=== PATIENT | female | born 1990 | race Caucasian/White ===

== ENCOUNTER 2018-03-23 23:58 | Emergency (ER) | payer BC, SELFPAY ==
[2018-03-24] MEDS ORDERED: Clindamycin 150 MG CAP ONE (00:42)
[2018-03-24] MEDS ORDERED: Dexamethasone 10 MG/ML VIAL ONE (00:42)
== END 2018-03-24 00:52 | disposition home or self-care (01) ==
LOC: ERS 23:58
DX: J02.9 Acute pharyngitis, unspecified (principal)
CPT/HCPCS: 99283; J1100

== ENCOUNTER 2018-04-05 18:08 | Inpatient (IN) | payer SELFPAY ==
[~2018-04-05 18:08] MED LIST: ISOVUE-370 76%-LOCM 1 ML ONE
[2018-04-05 18:45] LABS: #Basophils 0.1 thou/uL (0.0-0.2); #Eosinphils 0.5 thou/uL (0.0-0.7); #Lymphocytes 3.5 thou/uL (1.20-3.40); #Monocytes 0.8 thou/uL (0.11-0.59); #Neutrophils 13.2 thou/uL (1.40-6.50); %Basophils 0.6 % (0.0-1.0); %Eosinophils 2.8 % (0.0-10.0); %Lymphocytes 19.1 % (21.0-51.0); %Monocytes 4.2 % (0.0-10.0); %Neutrophils 73.2 % (42.0-75.0); Hemoglobin 14.4 g/dL (12.0-16.0); Mean Corpuscular Hemoglobin 29.4 pg (27.0-31.0); Mean Corpuscular Volume 88.9 fL (78.0-98.0); Mean Platelet Volume 8.4 fL (7.4-10.4); Platelet Count 263 thou/uL (130-400); RBC Distribution Width 11.6 % (11.5-14.5); Red Blood Cell (RBC) Count 4.89 mill/uL (4.20-5.40)
[2018-04-05] MEDS ORDERED: Ondansetron PF 4 MG/2 ML Vial ONE (18:50)
[2018-04-05] MEDS ORDERED: Morphine 4 MG/ML VIAL ONE ×3 (18:50→20:56)
[2018-04-05 18:53] LABS: BHCG - Serum Negative (NEGATIVE); Pregs Control Background? CLEAR/WHITE (CLR/WHITE); Pregs Control Bar Appear? YES (CONTROL BAR)
[2018-04-05 18:56] LABS: ALT (SGPT) 27 U/L (8-55); AST (SGOT) 19 U/L (5-34); Albumin 4.3 g/dL (3.5-5.0); Alkaline Phosphatase 103 U/L (40-150); Anion Gap 14 mmol/L (10-20); BUN (Urea Nitrogen) 9 mg/dL (7.0-18.7); Bilirubin, Total 0.7 mg/dL (0.2-1.2); Calc. Creatinine Clearance 0 mL/min (70-130); Calcium 9.9 mg/dL (7.8-10.44); Carbon Dioxide 26 mmol/L (22-29); Chloride 103 mmol/L (98-107); Estimated GFR-MDRD 82; Glucose 146 mg/dL (70-105); Potassium 4.1 mmol/L (3.5-5.1); Protein, Total 7.3 g/dL (6.0-8.3); Sodium 139 mmol/L (136-145)
[2018-04-05 19:59] LABS: Bilirubin Negative (Negative); Blood, Urine Negative (Negative); Clarity CLEAR (Clear); Glucose, Urine (Dipstick) Negative (Negative); Leukocyte Negative (Negative); Nitrite Negative (Negative); Protein, Urine (Dipstick) Negative (Neg-Trace); Specific Gravity, Urine 1.028 (1.002-1.036)
[2018-04-05] MEDS ORDERED: metroNIDAZOLE 500 MG/100 ML BAG ONE (20:14)
--- NOTE | 2018-04-05 20:48 | CT ---
ABDOMEN AND PELVIS CT WITH CONTRAST: Date: 04/05/18 COMPARISON: 02/02/15. CLINICAL HISTORY: Pain, described as greatest within the left lower quadrant. FINDINGS: Stable punctate high density nodule of the right lung base indicates granulomatous calcification. The re is no acute abnormality of the solid abdominal organs. The bowel is incompletely assessed without enteric contrast. No free air is seen. No portal vein gas. The abdominal aorta is normal caliber. The re is a focus of inflammation at the left lower quadrant involving sigmoid colon where there is diver ticulosis. No acute osseous abnormality is seen. IMPRESSION: Evidence of acute sigmoid diverticulitis. As there is associated wall thickening, recommend follow-up with colonoscopy upon resolution of acute symptoms and completion of treatment regimen in order to e xclude the possibility of mural based neoplasm. POS: CRISTOBAL
[2018-04-05] MEDS ORDERED: Ketorolac Tromethamine 30 MG/ML VIAL ONE (20:56)
--- NOTE | 2018-04-05 22:03 | ULT ---
PELVIC ULTRASOUND WITH TRINIDAD SCALE AND DOPPLER COLOR FLOW IMAGING, WITH SPECTRAL ANALYSIS TRANSVAGINAL AND TRANSABDOMINAL PELVIC ULTRASOUND PERFORMED 04/05/18 INDICATION: Left lower abdominal pain with nausea and fever. FINDINGS: No focal uterine lesion. Endometrium is normal in caliber at 5 mm. Physiologic appearing follicles ar e seen within each ovary. Doppler flow is documented within each ovary with vascular waveforms. IMPRESSION: No acute abnormality of the uterus and adnexa demonstrated. POS: MARIANGEL
[2018-04-06] MEDS ORDERED: Ondansetron ODT 4 MG TAB SL PRN (00:58)
[2018-04-06] MEDS ORDERED: Ondansetron PF 4 MG/2 ML Vial IVP PRN ×2 (00:58→11:31)
[2018-04-06] MEDS: Morphine 4 MG/ML VIAL SLOW IVP PRN ×6 (01:08→21:19)
[2018-04-06] MEDS ORDERED: Acetaminophen 650 MG Suppository PR PRN (03:37)
[2018-04-06] MEDS ORDERED: Acetaminophen 325 MG TAB PO PRN (03:37)
[2018-04-06 04:11] LABS: #Basophils 0.1 thou/uL (0.0-0.2); #Eosinphils 0.5 thou/uL (0.0-0.7); #Lymphocytes 3.2 thou/uL (1.20-3.40); #Monocytes 0.8 thou/uL (0.11-0.59); #Neutrophils 8.7 thou/uL (1.40-6.50); %Basophils 0.4 % (0.0-1.0); %Monocytes 5.7 % (0.0-10.0); %Neutrophils 65.9 % (42.0-75.0); Hemoglobin 12.6 g/dL (12.0-16.0); Mean Corpuscular HGB CONC 32.7 g/dL (32.0-36.0); Mean Corpuscular Hemoglobin 29.3 pg (27.0-31.0); Mean Corpuscular Volume 89.7 fL (78.0-98.0); Mean Platelet Volume 8.3 fL (7.4-10.4); Platelet Count 228 thou/uL (130-400); RBC Distribution Width 11.7 % (11.5-14.5); Red Blood Cell (RBC) Count 4.28 mill/uL (4.20-5.40); White Blood Cell (WBC) Count 13.2 thou/uL (4.8-10.8)
[2018-04-06] MEDS: Sodium Chloride 0.9% 1,000 ML IV SCH ×2 (04:20→21:12)
[2018-04-06 04:31] LABS: ALT (SGPT) 22 U/L (8-55); AST (SGOT) 15 U/L (5-34); Albumin 3.5 g/dL (3.5-5.0); Alkaline Phosphatase 81 U/L (40-150); Anion Gap 12 mmol/L (10-20); BUN (Urea Nitrogen) 12 mg/dL (7.0-18.7); Bilirubin, Total 0.5 mg/dL (0.2-1.2); Calc. Creatinine Clearance 191 mL/min (70-130); Calcium 8.7 mg/dL (7.8-10.44); Carbon Dioxide 22 mmol/L (22-29); Chloride 109 mmol/L (98-107); Estimated GFR-MDRD 85; Globulin 2.3 g/dL (2.4-3.5); Glucose 122 mg/dL (70-105); Potassium 3.9 mmol/L (3.5-5.1); Protein, Total 5.8 g/dL (6.0-8.3); Sodium 139 mmol/L (136-145)
--- NOTE | 2018-04-06 04:33 | HP ---
CHIEF COMPLAINT: Left lower quadrant abdominal pain. HISTORY OF PRESENT ILLNESS AND REVIEW OF SYSTEMS: This is a 27-year-old woman presenting with a 3-day history of left lower abdominal pain that has progressively worsen and has become severe today. The patient states that she has been experiencing loss of appetite as well as increased abdominal bloating with lower abdominal cramping. The patient states she typically has this before starting her menses. Today, however, the pain became severe and intolerable, which she rates 10/10 in severity, mainly concentrated on the left side. This prompted her to come in to the ED where she underwent multiple investigations including pelvic ultrasound showing no acute abnormality of the uterus and adnexa. test was negative. She underwent further imaging with CT of the abdomen and pelvis, which did confirm acute sigmoid diverticulitis with associated wall thickening. Colonoscopy was advised once completion of treatment and improvement in current symptoms. She reports taking Tylenol and ibuprofen at home with minimal relief. In the ED, she was given morphine 4 mg x3 doses as well as Toradol. The patient was started on IV antibiotics with Cipro and Flagyl. She was noted to have white count of 18. Otherwise, laboratory studies unremarkable. The patient has had no significant relief in pain and upon being transferred to the observation unit, she reported a pain that was 10/10. She was given additional morphine with slight improvement to a severity of 6/10. At present, the patient is resting comfortably and states the pain seems to be exacerbated by movements or palpation. She has been able to get some sleep since getting the last dose of morphine. She denies having any vomiting since presenting to the ED. Denies having any hematemesis. No chest pain, palpitations, or shortness of breath. Reports having intermittent temperatures, but this has settled since admission. No urinary symptoms such as dysuria, hematuria, urgency, or frequency. Denies any vaginal bleeding or discharge. No headaches or dizziness. Denies any back pain. All other review of systems are negative. Of note, the patient was recently treated for strep throat and remains on antibiotics. She was prescribed clindamycin x10 days. PAST MEDICAL HISTORY: None. PAST SURGICAL HISTORY: None. SOCIAL HISTORY: The patient is fully independent, normally fit and well. Denies any alcohol use or illicit drug use. She is a nonsmoker. ALLERGIES: NO KNOWN DRUG ALLERGIES. CURRENT MEDICATIONS: None. PHYSICAL EXAMINATION: GENERAL: The patient was found sleeping comfortably. She appears to be in no acute distress at this present time. VITAL SIGNS: Temperature 97.8, pulse 95, respirations 22, O2 saturation 96% on room air, blood pressure 111/55. HEENT: Normocephalic and atraumatic. Pupils are equal, round, reactive to light sclerae are without icterus. Oropharynx is clear. NECK: Supple without lymphadenopathy. LUNGS: Clear to auscultation bilaterally. CARDIAC: Regular rate and rhythm. ABDOMEN: Obese, soft, with left-sided abdominal tenderness with light percussion in the left lower quadrant. No rigidity. EXTREMITIES: No clubbing, cyanosis, or edema. No calf pain/tenderness. LABORATORY DATA: White blood count 18, hemoglobin 14.4, hematocrit 43.5, platelets 263. Sodium 139, potassium 4.1, BUN 9, creatinine 0.83, glucose 156. LFTs unremarkable. Serum test negative. UA unremarkable. IMAGING DATA: As mentioned above in HPI. IMPRESSION AND PLAN: Ms. Hankins is a pleasant 27-year-old woman, who is being admitted to hospital for medical management of the followin. Acute diverticulitis. Continue Cipro and Flagyl. Monitor white cell count. N.p.o. diet to provide some bowel rest. 2. Pain. The patient with slight improvement in left lower quadrant pain following additional dose of morphine. Continue analgesia as needed. 3. Gastrointestinal prophylaxis. 4. Deep venous thrombosis prophylaxis. 5. Disposition. The patient admitted to the observation unit. 6. The patient's case was discussed with Dr. Duran, who agrees with plan of care. Job ID: [id number]
[2018-04-06] MEDS: metroNIDAZOLE 500 MG in Premix Bag 1 BAG IVPB SCH ×3 (06:19→22:59)
[2018-04-06] MEDS: Famotidine/PF 20 mg/2ml Vial SLOW IVP SCH ×2 (09:23→21:16)
--- NOTE | 2018-04-06 11:38 | PDOC.PN ---
- Subjective Encounter Start Date: 04/06/18 Encounter Start Time: 11:00 Subjective: Patient reports she is still in pain, better lying on her left side -: Denies fever, chills overnight -: Reports some nausea, - Objective Resuscitation Status - Order Detail: 04/06/18 03:37 Resuscitation Status Routine Co-Sign Provider: Resuscitation Status: FULL: Full Resuscitation Vital Signs & Weight: Vital Signs (12 hours) Temp Pulse Resp BP Pulse Ox 04/06/18 07:56 97.4 F L 81 20 138/79 98 04/06/18 03:56 98 F 68 18 114/57 L 95 04/06/18 00:37 97.8 F 95 22 H 111/55 L 96 Weight Weight 115.575 kg I&O: 04/05/18 04/06/18 04/07/18 06:59 06:59 06:59 Intake Total 150 2 Output Total 0 Balance 150 2 Result Diagrams: 04/06/18 04:03 04/06/18 04:03 Phys Exam - Physical Examination HEENT: PERRLA, moist MMs Neck: no nodes, no JVD Respiratory: no wheezing, clear to auscultation bilateral Cardiovascular: RRR, no significant murmur Gastrointestinal: positive bowel sounds Lower left abdominal pain Musculoskeletal: no edema, pulses present Neurological: non-focal, normal sensation, moves all 4 limbs Lymphatic: no nodes Psychiatric: normal affect, A&O x 3 Skin: no rash, normal turgor, cap refill <2 seconds Dx/Plan (1) Diverticulitis Code(s): K57.92 - DVTRCLI OF INTEST, PART UNSP, W/O PERF OR ABSCESS W/O BLEED Status: Acute (2) Nausea & vomiting Code(s): R11.2 - NAUSEA WITH VOMITING, UNSPECIFIED Status: Acute Qualifiers: Vomiting Intractability: non-intractable (3) Pain Code(s): R52 - PAIN, UNSPECIFIED Status: Acute - Plan cont current plan of care, continue antibiotics, DVT proph w/SCDs Will continue IV ABX, fluids, pain meds, zofran as needed -: Will monitor VS, recheck labs, WBC count improving -: Discussed with Dr. Pedro who agrees to plan * . Review of Systems - Review of Systems Constitutional: chills, malaise Gastrointestinal: Nausea, Abdominal Pain - Medications/Allergies Allergies/Adverse Reactions: Allergies Allergy/AdvReac Type Severity Reaction Status Date / Time No Known Allergies Allergy Unverified 04/05/18 20:17 Medications: Current Medications Acetaminophen (Tylenol) 650 mg PO Q4H PRN PRN Reason: Headache/Fever/Mild Pain (1-3) Acetaminophen (Tylenol) 650 mg FL Q4H PRN PRN Reason: Headache/Fever/Mild Pain (1-3) Famotidine (Pepcid) 20 mg SLOW IVP Q12HR [facility] Last Admin: 04/06/18 09:23 Dose: 20 mg Sodium Chloride (Normal Saline 0.9%) 1,000 mls @ 75 mls/hr IV .[id number] [facility] Last Admin: 04/06/18 04:20 Dose: 1,000 mls Ciprofloxacin/Dextrose 400 mg/ (Device) 200 mls @ 200 mls/hr IVPB Q12HR [facility] Last Admin: 04/06/18 09:25 Dose: 200 mls Metronidazole 500 mg/ Device 100 mls @ 100 mls/hr IVPB Q8HR [facility] Last Admin: 04/06/18 06:19 Dose: 100 mls Morphine Sulfate (Morphine) 4 mg SLOW IVP Q4H PRN PRN Reason: Moderate to Severe Pain (6-10) Ondansetron HCl (Zofran) 4 mg IVP Q6H PRN PRN Reason: Nausea/Vomiting Pantoprazole Sodium (Protonix) 40 mg IVP Q12HR [facility]
[2018-04-06 14:56] VITALS: BMI 38.7
[2018-04-06] MEDS: Pantoprazole 40 MG VIAL IVP SCH (21:23)
[2018-04-07] MEDS: metroNIDAZOLE 500 MG in Premix Bag 1 BAG IVPB SCH ×3 (05:11→21:37)
[2018-04-07] MEDS: Famotidine/PF 20 mg/2ml Vial SLOW IVP SCH ×2 (08:22→18:18)
[2018-04-07] MEDS: Pantoprazole 40 MG VIAL IVP SCH ×2 (08:22→20:24)
[2018-04-07] MEDS: Morphine 4 MG/ML VIAL SLOW IVP PRN ×3 (08:27→22:58)
[2018-04-07] MEDS: Sodium Chloride 0.9% 1,000 ML IV SCH ×2 (08:28→20:24)
[2018-04-07 08:46] LABS: #Eosinphils 0.6 thou/uL (0.0-0.7); #Lymphocytes 2.3 thou/uL (1.20-3.40); #Monocytes 0.6 thou/uL (0.11-0.59); #Neutrophils 5.2 thou/uL (1.40-6.50); %Basophils 0.4 % (0.0-1.0); %Eosinophils 7.2 % (0.0-10.0); %Lymphocytes 26.3 % (21.0-51.0); %Neutrophils 59.1 % (42.0-75.0); Mean Corpuscular HGB CONC 32.5 g/dL (32.0-36.0); Mean Platelet Volume 8.3 fL (7.4-10.4); Platelet Count 242 thou/uL (130-400); RBC Distribution Width 11.6 % (11.5-14.5); Red Blood Cell (RBC) Count 4.48 mill/uL (4.20-5.40); White Blood Cell (WBC) Count 8.8 thou/uL (4.8-10.8)
[2018-04-07 09:06] LABS: ALT (SGPT) 23 U/L (8-55); AST (SGOT) 21 U/L (5-34); Albumin 3.6 g/dL (3.5-5.0); Alkaline Phosphatase 79 U/L (40-150); Anion Gap 11 mmol/L (10-20); BUN (Urea Nitrogen) 9 mg/dL (7.0-18.7); Bilirubin, Total 0.7 mg/dL (0.2-1.2); Calc. Creatinine Clearance 212 mL/min (70-130); Calcium 9.1 mg/dL (7.8-10.44); Carbon Dioxide 24 mmol/L (22-29); Chloride 108 mmol/L (98-107); Estimated GFR-MDRD Greater than 90; Globulin 2.5 g/dL (2.4-3.5); Glucose 88 mg/dL (70-105); Potassium 4.6 mmol/L (3.5-5.1); Protein, Total 6.1 g/dL (6.0-8.3); Sodium 138 mmol/L (136-145)
--- NOTE | 2018-04-07 15:21 | PDOC.PN ---
- Subjective Encounter Start Date: 04/07/18 Encounter Start Time: 15:15 Subjective: f/u for acute sigmoid diverticulitis on Cipro/Flagyl. Still with pain -: in LLQ but NPO. No diarrhea. No N/V. - Objective Resuscitation Status - Order Detail: 04/06/18 03:37 Resuscitation Status Routine Co-Sign Provider: Resuscitation Status: FULL: Full Resuscitation MAR Reviewed: Yes Vital Signs & Weight: Vital Signs (12 hours) Temp Pulse Resp BP Pulse Ox 04/07/18 08:00 94 L 04/07/18 07:49 97.9 F 64 20 107/68 94 L 04/07/18 04:00 97.6 F 77 16 97/63 94 L Weight Admit Weight 254 lb 8 oz Weight 254 lb 8 oz I&O: 04/06/18 04/07/18 04/08/18 06:59 06:59 06:59 Intake Total 150 302 Output Total 0 Balance 150 302 Result Diagrams: 04/07/18 08:26 04/07/18 08:26 Additional Labs: Laboratory Tests 04/05/18 04/06/18 18:20 04:03 WBC 18.0 H 13.2 H Radiology Reviewed by me: Yes (CT abd/pel - sigmoid wall thickening) Phys Exam - Physical Examination alert, responsive, mild distress HEENT: PERRLA, sclera anicteric, oral pharynx no lesions Neck: no nodes, no JVD, supple, full ROM Respiratory: no wheezing, no rales, no rhonchi, clear to auscultation bilateral S1, S2 Cardiovascular: RRR, no significant murmur, no rub, gallop + TTP in LLQ Gastrointestinal: soft, no distention, positive bowel sounds Musculoskeletal: no edema, pulses present Neurological: normal sensation, moves all 4 limbs Psychiatric: A&O x 3 Skin: normal turgor, cap refill <2 seconds Dx/Plan (1) Sigmoid diverticulitis Code(s): K57.32 - DVTRCLI OF LG INT W/O PERFORATION OR ABSCESS W/O BLEEDING Status: Acute Comment: Slow improvement, continue Cipro/Flagyl, Morphine sulfate IV (2) LLQ abdominal pain Code(s): R10.32 - LEFT LOWER QUADRANT PAIN Status: Acute Comment: Slow improvement due to #1, see above (3) Nausea & vomiting Code(s): R11.2 - NAUSEA WITH VOMITING, UNSPECIFIED Status: Acute Qualifiers: Vomiting Intractability: non-intractable Comment: Resolving, start clear liquids (4) Leukocytosis Code(s): D72.829 - ELEVATED WHITE BLOOD CELL COUNT, UNSPECIFIED Status: Acute Comment: Resolving, continue IV abx - Plan continue antibiotics, out of bed/ambulate, DVT proph w/SCDs Stable currently -: Continue Cipro/Flagyl -: Morphine sulfate 4mg IV q4h -: Start clear liquids -: OOB/ambulate * AM lab: CMP, CBC
[2018-04-08] MEDS: metroNIDAZOLE 500 MG in Premix Bag 1 BAG IVPB SCH ×3 (05:27→22:16)
[2018-04-08 05:45] LABS: #Eosinphils 0.5 thou/uL (0.0-0.7); #Lymphocytes 3.1 thou/uL (1.20-3.40); #Monocytes 0.5 thou/uL (0.11-0.59); #Neutrophils 4.3 thou/uL (1.40-6.50); %Basophils 0.5 % (0.0-1.0); %Eosinophils 5.9 % (0.0-10.0); %Lymphocytes 36.7 % (21.0-51.0); %Monocytes 6.1 % (0.0-10.0); %Neutrophils 50.7 % (42.0-75.0); Hemoglobin 13.1 g/dL (12.0-16.0); Mean Corpuscular HGB CONC 32.9 g/dL (32.0-36.0); Mean Corpuscular Hemoglobin 29.5 pg (27.0-31.0); Mean Corpuscular Volume 89.5 fL (78.0-98.0); Mean Platelet Volume 8.3 fL (7.4-10.4); Platelet Count 243 thou/uL (130-400); RBC Distribution Width 11.6 % (11.5-14.5); Red Blood Cell (RBC) Count 4.44 mill/uL (4.20-5.40); White Blood Cell (WBC) Count 8.5 thou/uL (4.8-10.8)
[2018-04-08 06:01] LABS: ALT (SGPT) 22 U/L (8-55); AST (SGOT) 19 U/L (5-34); Albumin 3.7 g/dL (3.5-5.0); Alkaline Phosphatase 77 U/L (40-150); Anion Gap 9 mmol/L (10-20); BUN (Urea Nitrogen) 10 mg/dL (7.0-18.7); Bilirubin, Total 0.6 mg/dL (0.2-1.2); Calc. Creatinine Clearance 206 mL/min (70-130); Calcium 9.1 mg/dL (7.8-10.44); Carbon Dioxide 24 mmol/L (22-29); Chloride 109 mmol/L (98-107); Estimated GFR-MDRD Greater than 90; Globulin 2.1 g/dL (2.4-3.5); Glucose 84 mg/dL (70-105); Potassium 4.1 mmol/L (3.5-5.1); Protein, Total 5.8 g/dL (6.0-8.3); Sodium 138 mmol/L (136-145)
[2018-04-08] MEDS: Famotidine/PF 20 mg/2ml Vial SLOW IVP SCH ×2 (08:05→21:17)
[2018-04-08] MEDS: Pantoprazole 40 MG VIAL IVP SCH ×2 (08:06→22:16)
[2018-04-08] MEDS: Sodium Chloride 0.9% 1,000 ML IV SCH (08:12)
--- NOTE | 2018-04-08 15:13 | PDOC.PN ---
- Subjective Encounter Start Date: 04/08/18 Encounter Start Time: 12:40 Subjective: f/u for sigmoid diverticulitis on Flagyl/Cipro. Feels much better today -: and less abd pain. Tolerating clear liquids. - Objective Resuscitation Status - Order Detail: 04/06/18 03:37 Resuscitation Status Routine Co-Sign Provider: Resuscitation Status: FULL: Full Resuscitation MAR Reviewed: Yes Vital Signs & Weight: Vital Signs (12 hours) Pulse Ox 04/08/18 08:00 96 Weight Admit Weight 254 lb 8 oz Weight 254 lb 8 oz I&O: 04/07/18 04/08/18 04/09/18 06:59 06:59 06:59 Intake Total 302 420 240 Balance 302 420 240 Result Diagrams: 04/08/18 05:19 04/08/18 05:19 Additional Labs: Laboratory Tests 04/05/18 04/06/18 18:20 04:03 WBC 18.0 H 13.2 H Phys Exam - Physical Examination Constitutional: NAD smiling, alert, responsive HEENT: PERRLA, sclera anicteric, oral pharynx no lesions Neck: no nodes, no JVD, supple, full ROM Respiratory: no wheezing, no rales, no rhonchi, clear to auscultation bilateral S1, S2 Cardiovascular: RRR, no significant murmur, no rub, gallop TTP in LLQ Gastrointestinal: soft, no distention, positive bowel sounds Musculoskeletal: no edema, pulses present Neurological: normal sensation, moves all 4 limbs Psychiatric: normal affect, A&O x 3 Skin: normal turgor, cap refill <2 seconds Dx/Plan (1) Sigmoid diverticulitis Code(s): K57.32 - DVTRCLI OF LG INT W/O PERFORATION OR ABSCESS W/O BLEEDING Status: Acute Comment: Improving, continue Cipro/Flagyl, Morphine sulfate IV, likely transition to po abx in 24h (2) LLQ abdominal pain Code(s): R10.32 - LEFT LOWER QUADRANT PAIN Status: Acute Comment: Slow improvement due to #1, see above (3) Nausea & vomiting Code(s): R11.2 - NAUSEA WITH VOMITING, UNSPECIFIED Status: Acute Qualifiers: Vomiting Intractability: non-intractable Comment: Resolving, advance to full liquids (4) Leukocytosis Code(s): D72.829 - ELEVATED WHITE BLOOD CELL COUNT, UNSPECIFIED Status: Acute Comment: Resolving, continue IV abx - Plan continue antibiotics, out of bed/ambulate, DVT proph w/SCDs Stable currently -: Continue Cipro/Flagyl another 24h -: Convert to po abx in 24h -: Saline lock IVF -: Start Full liquids * Likely home in 24h
[2018-04-09] MEDS: metroNIDAZOLE 500 MG in Premix Bag 1 BAG IVPB SCH (05:11)
[2018-04-09 07:58] VITALS: BP 104/68; TEMP 98.2
[2018-04-09] MEDS: Pantoprazole 40 MG VIAL IVP SCH (08:04)
[2018-04-09] MEDS: Famotidine/PF 20 mg/2ml Vial SLOW IVP SCH (08:05)
--- NOTE | 2018-04-09 18:28 | DIS ---
DATE OF ADMISSION: 04/06/2018 DATE OF DISCHARGE: 04/09/2018 DISCHARGE DIAGNOSES: 1. Acute sigmoid diverticulitis, resolving. 2. Left lower quadrant abdominal pain secondary to acute sigmoid diverticulitis, resolving. 3. Nausea and vomiting, resolved. 4. Leukocytosis secondary to acute sigmoid diverticulitis, resolved. CONSULTATIONS: None. PERTINENT LAB AND X-RAY FINDINGS: Complete metabolic profile within normal limits. CBC showed a white blood cell count ranged between 8.5 [address]. CT of the abdomen and pelvis dated 04/05/2018, showed acute sigmoid diverticulitis with associated wall thickening. Pelvic ultrasound dated 04/05/2018, showed no acute process. HOSPITAL COURSE: The patient was admitted after presenting with left lower quadrant abdominal pain with CT imaging confirming evidence of acute sigmoid diverticulitis with wall thickening. The patient was placed on IV ciprofloxacin and Flagyl as well as given pain medication and IV fluids. The patient was placed on n.p.o. status and given antiemetics as well as proton pump inhibitors. The patient clinically improved in approximately 48 to 72 hours advancing to clear liquids tolerating without difficulty. The patient also transitioned to full liquids without recurrence of abdominal pain. I have examined the patient at the time of discharge and discussed followup instructions. The patient verbalized understanding and agreement ready for discharge on 04/09/2018. DISCHARGE MEDICATIONS: 1. Ciprofloxacin 500 mg 1 tablet p.o. b.i.d. x7 days. 2. Flagyl 500 mg 1 tablet p.o. t.i.d. x7 days. FOLLOWUP: The patient may follow up with [facility] in [place], [place] to establish care and a primary care provider in 7 to 10 days. CONDITION ON DISCHARGE: Stable. ACTIVITY: Ad-patrick. DIET: Regular. CODE STATUS: Full. DISPOSITION: To home 04/09/2018. Job ID: [id number]
== END 2018-04-09 11:10 | disposition home or self-care (01) | DRG 392 ==
LOC: ERS 18:08 → 2SW 23:08 → OBSVTOIN 04-06 12:04 → T4-A 04-06 18:17
PROVIDERS: ADMIT Hospitalist; ATTEND Hospitalist
DX: K57.32 Diverticulitis of large intestine without perforation or abscess without bleeding (principal)
CPT/HCPCS: 36415; 74177; 76856; 80053; 81003; 84703; 85025; 96361; 96365; 96366; 96367; 96375; 96376; C9113; J0744; J1885; J2270; J2405; Q9966; S0028

== ENCOUNTER 2021-10-07 09:36 | Outpatient (CLI) | payer OTHER | END 2021-10-07 09:37 | disposition home or self-care (01) | LOC: BICMAMMO 09:36 | PROVIDERS: ATTEND Obstetrics & Gynecology | DX: N63.23 Unspecified lump in the left breast, lower outer quadrant (principal) | CPT/HCPCS: 77066; G0279 ==

== ENCOUNTER 2022-04-29 08:50 | Outpatient (CLI) | payer OTHER | END 2022-04-29 08:51 | disposition home or self-care (01) | LOC: BICULT 08:50 | PROVIDERS: ATTEND Obstetrics & Gynecology | DX: R92.8 Other abnormal and inconclusive findings on diagnostic imaging of breast (principal); N63.21 Unspecified lump in the left breast, upper outer quadrant ==

== ENCOUNTER 2022-10-12 11:51 | Outpatient (CLI) | payer OTHER | END 2022-10-12 11:52 | disposition home or self-care (01) | LOC: BICMAMMO 11:51 | PROVIDERS: ATTEND Obstetrics & Gynecology | DX: N63.20 Unspecified lump in the left breast, unspecified quadrant (principal) | CPT/HCPCS: 77066; G0279 ==

== ENCOUNTER → 2022-10-25 | Day surgery (SDC) | payer OTHER | LOC: BICULT 12:26 | PROVIDERS: ATTEND Obstetrics & Gynecology | PROC: 0HB5XZX Excision of Chest Skin, External Approach, Diagnostic (ICD-10-PCS; principal; 2022-10-25) | DX: N63.23 Unspecified lump in the left breast, lower outer quadrant (principal); R92.8 Other abnormal and inconclusive findings on diagnostic imaging of breast; D24.2 Benign neoplasm of left breast | CPT/HCPCS: 19083; 88305 ==

== ENCOUNTER 2023-04-01 21:33 | Emergency (ER) | payer OTHER, SELFPAY ==
[2023-04-01 22:18] LABS: #Eosinphils 0.4 thou/uL (0.0-0.7); #Monocytes 0.6 thou/uL (0.11-0.59); #Neutrophils 6.8 thou/uL (1.40-6.50); %Basophils 0.2 % (0.0-1.0); %Eosinophils 3.5 % (0.0-10.0); %Lymphocytes 35.4 % (21.0-51.0); %Monocytes 4.9 % (0.0-10.0); %Neutrophils 55.8 % (42.0-75.0); Hematocrit 39.6 % (36.0-47.0); Hemoglobin 13.4 g/dL (12.0-16.0); Mean Corpuscular HGB CONC 33.8 g/dL (32.0-36.0); Mean Corpuscular Hemoglobin 29.8 pg (27.0-31.0); Mean Corpuscular Volume 88.2 fl (78.0-98.0); Mean Platelet Volume 10.7 fL (7.4-10.4); Platelet Count 231 10x3/uL (130-400); RBC Distribution Width 12.9 % (11.5-14.5); Red Blood Cell (RBC) Count 4.49 mill/uL (4.20-5.40); White Blood Cell (WBC) Count 12.2 10x3/uL (4.8-10.8)
[2023-04-01 22:25] LABS: Bacteria/HPF None Seen HPF (None Seen); Bilirubin Negative (Negative); Blood, Urine Negative (Negative); CAUTI Indications for Culture Pelvic or flank pain; Clarity Clear (Clear); Glucose, Urine (Dipstick) Normal (Negative); Ketone, Urine Trace mg/dL (Negative); Leukocyte Negative Leu/uL (Negative); Nitrite Negative (Negative); Protein, Urine (Dipstick) Negative (Neg-Trace); RBC/HPF 0-3 HPF (0-3); Specific Gravity, Urine 1.005 (1.002-1.036); Squamous Epithelial 0-3 HPF (0-3); Urobilinogen Normal mg/dL (Less than 2); WBC/HPF 0-3 HPF (0-3)
[2023-04-01 22:26] LABS: Pregnancy Test - Urine (BHCG) Negative (Negative); Pregu Control Background? CLEAR/WHITE (CLR/WHITE); Pregu Control Bar Appear? YES (CONTROL BAR); Specific Gravity 1.005 (1.002-1.036); Urine Culture Reflex No No
[2023-04-01 22:44] LABS: ALT (SGPT) 13 U/L (8-55); AST (SGOT) 15 U/L (5-34); Albumin 3.9 g/dL (3.5-5.0); Alkaline Phosphatase 93 U/L (40-110); Anion Gap 9 mmol/L (10-20); BUN (Urea Nitrogen) 11 mg/dL (7.0-18.7); Bilirubin, Total 0.5 mg/dL (0.2-1.2); Calc. Creatinine Clearance 0 mL/min (70-130); Calcium 9.1 mg/dL (7.8-10.44); Carbon Dioxide 23 mmol/L (22-29); Chloride 109 mmol/L (98-107); Estimated GFR 120; Globulin 2.5 g/dL (2.4-3.5); Glucose 96 mg/dL (70-105); Potassium 3.8 mmol/L (3.5-5.1); Protein, Total 6.4 g/dL (6.0-8.3); Sodium 137 mmol/L (136-145)
[2023-04-01 23:46] LABS: Troponin I Less than 0.010 ng/mL (< 0.028)
== END 2023-04-02 00:51 | disposition home or self-care (01) ==
LOC: ERS 21:33
DX: R00.2 Palpitations (principal); R06.02 Shortness of breath
CPT/HCPCS: 36415; 71045; 80053; 81001; 81025; 84443; 84484; 85025; 93005; 94760

== ENCOUNTER 2023-12-02 02:02 | Observation (INO) | payer OTHER ==
[2023-12-02] MEDS ORDERED: Morphine 4 MG/ML VIAL ONE ×2 (02:34→05:16)
[2023-12-02] MEDS ORDERED: Ondansetron PF 4 MG/2 ML Vial ONE (02:34)
[2023-12-02 03:11] LABS: #Basophils 0.04 10x3/uL (0.0-0.2); %Basophils 0.3 % (0.0-1.0); %Eosinophils 3.5 % (0.0-10.0); %Lymphocytes 34.1 % (21.0-51.0); Hematocrit 40.6 % (36.0-47.0); Hemoglobin 13.4 g/dL (12.0-16.0); Mean Corpuscular Hemoglobin 29.2 pg (27.0-31.0); Mean Corpuscular Volume 88.5 fL (78.0-98.0); Mean Platelet Volume 10.7 fL (7.4-10.4); Platelet Count 243 10x3/uL (130-400); RBC Distribution Width 12.9 % (11.5-14.5); Red Blood Cell (RBC) Count 4.59 mill/uL (4.20-5.40)
[2023-12-02 03:16] LABS: Bacteria/HPF None Seen HPF (None Seen); Bilirubin Negative (Negative); Blood, Urine Negative (Negative); CAUTI Indications for Culture Dysuria,urgency,freq; Clarity Clear (Clear); Glucose, Urine (Dipstick) Normal (Negative); Ketone, Urine Negative (Negative); Leukocyte Negative Leu/uL (Negative); Nitrite Negative (Negative); Protein, Urine (Dipstick) Negative (Neg-Trace); RBC/HPF 0-3 HPF (0-3); Specific Gravity, Urine 1.011 (1.002-1.036); Squamous Epithelial 0-3 HPF (0-3); Urobilinogen Normal mg/dL (Less than 2); WBC/HPF 0-3 HPF (0-3); pH, Urine 5.5 (5.0-9.0)
[2023-12-02 03:18] LABS: Pregnancy Test - Urine (BHCG) Negative (Negative); Pregu Control Background? CLEAR/WHITE (CLR/WHITE); Pregu Control Bar Appear? YES (CONTROL BAR); Specific Gravity 1.011 (1.002-1.036)
[2023-12-02 03:19] LABS: Urine Culture Reflex No No
[2023-12-02 03:25] LABS: ALT (SGPT) 13 U/L (8-55); AST (SGOT) 13 U/L (5-34); Albumin 3.9 g/dL (3.5-5.0); Alkaline Phosphatase 91 U/L (40-110); Anion Gap 11 mmol/L (10-20); BUN (Urea Nitrogen) 13 mg/dL (7.0-18.7); Bilirubin, Total 0.4 mg/dL (0.2-1.2); Calc. Creatinine Clearance 0 mL/min (70-130); Calcium 9.6 mg/dL (7.8-10.44); Carbon Dioxide 26 mmol/L (22-29); Chloride 104 mmol/L (98-107); Estimated GFR 107; Globulin 3.1 g/dL (2.4-3.5); Glucose 100 mg/dL (70-105); Lipase 25 U/L (8-78); Potassium 3.9 mmol/L (3.5-5.1); Sodium 137 mmol/L (136-145)
[2023-12-02] MEDS ORDERED: HYDROcodone/Acetaminophen 7.5/325 mg Tablet PO PRN (05:25)
[2023-12-02] MEDS ORDERED: Mag-Al 1200 mg/1200 mg/30 ML UDCUP PO PRN (05:26)
[2023-12-02] MEDS ORDERED: Morphine 4 MG/ML VIAL SLOW IVP PRN (05:26)
[2023-12-02] MEDS ORDERED: Ondansetron PF 4 MG/2 ML Vial IVP PRN (05:26)
[2023-12-02] MEDS ORDERED: Acetaminophen 325 MG TAB PO PRN (05:26)
[2023-12-02] MEDS ORDERED: hydrALAZINE 20 MG/ML VIAL SLOW IVP PRN (05:26)
[2023-12-02] MEDS: Piperacillin/Tazobactam 3.375 GM in Sodium Chloride 0.9% 100 ML IVPB SCH ×2 (06:46→07:17)
[2023-12-02 07:20] VITALS: BMI 38.4
[2023-12-02] MEDS: Lactated Ringer's 1,000 ML IV SCH (07:53)
[2023-12-02] MEDS: Famotidine 20 MG TAB PO SCH (07:57)
[2023-12-02] MEDS: Ketorolac Tromethamine 30 MG (1 mL) VIAL IVP SCH (10:00)
[2023-12-02] MEDS ORDERED: Piperacillin/Tazobactam 3.375 GM in Sodium Chloride 0.9% 100 ML IVPB SCH (12:00)
[2023-12-02 12:56] VITALS: BP 108/68; TEMP 97.8
[2023-12-02] MEDS ORDERED: Iopamidol 370 76% 100 ML VIAL ONE (13:53)
== END 2023-12-02 14:45 | disposition home or self-care (01) ==
LOC: ERS 02:02 → SURG B 05:30
PROVIDERS: ADMIT Surgery; ATTEND Surgery
DX: K80.20 Calculus of gallbladder without cholecystitis without obstruction (principal)
CPT/HCPCS: 74177; 76705; 80053; 81001; 81025; 83690; 85025; 93005; 93010; 96374; 96375; 96376; G0378; J1885; J2272; J2405; J2543; J7120; Q9967

== ENCOUNTER 2023-12-11 19:00 | Emergency (ER) | payer OTHER ==
[~2023-12-11 19:00] MED LIST changes: -ISOVUE-370 76%-LOCM 1 ML ONE; +Iopamidol-370 76% 500 ML MDV (1 ML CHARGE) ONE
[2023-12-11] MEDS ORDERED: Ketorolac Tromethamine 30 MG (1 mL) VIAL ONE (19:25)
[2023-12-11] MEDS ORDERED: Dexamethasone 10 MG/ML VIAL ONE (19:26)
[2023-12-11] MEDS ORDERED: diphenhydrAMINE 50 MG/ML VIAL ONE (19:41)
[2023-12-11 19:58] LABS: #Basophils 0.04 10x3/uL (0.0-0.2); %Basophils 0.3 % (0.0-1.0); %Eosinophils 3.3 % (0.0-10.0); %Lymphocytes 31.2 % (21.0-51.0); %Monocytes 5.2 % (0.0-10.0); %Neutrophils 59.7 % (42.0-75.0); Hematocrit 41.8 % (36.0-47.0); Hemoglobin 13.8 g/dL (12.0-16.0); Mean Corpuscular Hemoglobin 28.9 pg (27.0-31.0); Mean Corpuscular Volume 87.6 fL (78.0-98.0); Mean Platelet Volume 10.7 fL (7.4-10.4); Platelet Count 269 10x3/uL (130-400); RBC Distribution Width 12.9 % (11.5-14.5); Red Blood Cell (RBC) Count 4.77 mill/uL (4.20-5.40)
[2023-12-11 20:08] LABS: MONO NEGATIVE CONTROL ZONE White (Negative) (White); MONO POSITIVE CONTROL Pink Line (Positive) (PINK/RED); Mononucleosis NEGATIVE (NEGATIVE)
[2023-12-11 20:09] LABS: BHCG - Serum Negative (NEGATIVE); Pregs Control Background? CLEAR/WHITE (CLR/WHITE); Pregs Control Bar Appear? YES (CONTROL BAR)
[2023-12-11 20:19] LABS: ALT (SGPT) 13 U/L (8-55); AST (SGOT) 13 U/L (5-34); Albumin 4.1 g/dL (3.5-5.0); Alkaline Phosphatase 87 U/L (40-110); Anion Gap 11 mmol/L (10-20); BUN (Urea Nitrogen) 11 mg/dL (7.0-18.7); Bilirubin, Total 0.4 mg/dL (0.2-1.2); Calc. Creatinine Clearance 0 mL/min (70-130); Calcium 9.8 mg/dL (7.8-10.44); Carbon Dioxide 24 mmol/L (22-29); Chloride 106 mmol/L (98-107); Estimated GFR 101; Globulin 3.1 g/dL (2.4-3.5); Glucose 116 mg/dL (70-105); Potassium 3.9 mmol/L (3.5-5.1); Protein, Total 7.2 g/dL (6.0-8.3); Sodium 137 mmol/L (136-145)
== END 2023-12-11 22:04 | disposition home or self-care (01) ==
LOC: ERS 19:00
DX: M54.2 Cervicalgia (principal)
CPT/HCPCS: 36415; 70491; 80053; 83605; 84703; 85025; 86308; 87081; 87428; 87430; 96374; 96375; J1100; J1200; J1885; Q9967

== ENCOUNTER 2023-12-12 09:05 | Outpatient (CLI) | payer OTHER | END 2023-12-12 09:06 | disposition home or self-care (01) | LOC: BICMAMMO 09:05 | PROVIDERS: ATTEND Nurse Practitioner Family | DX: N63.11 Unspecified lump in the right breast, upper outer quadrant (principal) | CPT/HCPCS: 77066; G0279 ==

== ENCOUNTER 2024-01-24 00:08 | Emergency (ER) | payer OTHER ==
[2024-01-24 00:55] LABS: #Basophils 0.04 10x3/uL (0.0-0.2); %Basophils 0.4 % (0.0-1.0); %Eosinophils 5.7 % (0.0-10.0); %Lymphocytes 35.8 % (21.0-51.0); %Monocytes 5.7 % (0.0-10.0); %Neutrophils 52.1 % (42.0-75.0); Hematocrit 38.8 % (36.0-47.0); Hemoglobin 13.1 g/dL (12.0-16.0); Mean Corpuscular HGB CONC 33.8 g/dL (32.0-36.0); Mean Corpuscular Hemoglobin 28.9 pg (27.0-31.0); Mean Corpuscular Volume 85.5 fL (78.0-98.0); Mean Platelet Volume 10.3 fL (7.4-10.4); Platelet Count 253 10x3/uL (130-400); RBC Distribution Width 12.4 % (11.5-14.5); Red Blood Cell (RBC) Count 4.54 mill/uL (4.20-5.40)
[2024-01-24 01:29] LABS: ALT (SGPT) 11 U/L (8-55); AST (SGOT) 12 U/L (5-34); Albumin 3.7 g/dL (3.5-5.0); Alkaline Phosphatase 81 U/L (40-110); Anion Gap 12 mmol/L (10-20); BUN (Urea Nitrogen) 13 mg/dL (7.0-18.7); Bilirubin, Total 0.2 mg/dL (0.2-1.2); Calc. Creatinine Clearance 0 mL/min (70-130); Calcium 8.8 mg/dL (7.8-10.44); Carbon Dioxide 24 mmol/L (22-29); Chloride 107 mmol/L (98-107); Estimated GFR 107; Globulin 2.6 g/dL (2.4-3.5); Glucose 102 mg/dL (70-105); Potassium 3.9 mmol/L (3.5-5.1); Protein, Total 6.3 g/dL (6.0-8.3); Sodium 139 mmol/L (136-145)
[2024-01-24] MEDS ORDERED: Ketorolac Tromethamine 30 MG (1 mL) VIAL ONE (01:35)
[2024-01-24] MEDS ORDERED: Metoclopramide HCl 10 MG (2 mL) VIAL ONE (01:35)
[2024-01-24 01:38] LABS: Prothrombin Time 13.1 sec (12.0-14.7)
[2024-01-24 01:39] LABS: PTT 28.7 sec (22.9-36.1); Troponin I Less than 0.010 ng/mL (< 0.028)
[2024-01-24] MEDS ORDERED: Iopamidol-370 76% 500 ML MDV (1 ML CHARGE) ONE (11:01)
== END 2024-01-24 02:45 | disposition home or self-care (01) ==
LOC: ERS 00:08
DX: G43.909 Migraine, unspecified, not intractable, without status migrainosus (principal); R29.704 NIHSS score 4
CPT/HCPCS: 36416; 70450; 70496; 70498; 80053; 84484; 85025; 85610; 85730; 87428; 93005; 96374; 96375; J1885; J2765

== ENCOUNTER 2024-01-31 10:23 | Outpatient (CLI) | payer OTHER | END 2024-01-31 10:24 | disposition home or self-care (01) | LOC: SCSRAD 10:23 | PROVIDERS: ATTEND Nurse Practitioner Family | DX: R06.02 Shortness of breath (principal) | CPT/HCPCS: 71046 ==

== ENCOUNTER 2024-04-01 19:15 | Emergency (ER) | payer OTHER ==
[2024-04-01 20:16] LABS: #Basophils 0.03 10x3/uL (0.0-0.2); %Basophils 0.2 % (0.0-1.0); %Eosinophils 2.1 % (0.0-10.0); %Lymphocytes 31.3 % (21.0-51.0); %Monocytes 6.6 % (0.0-10.0); %Neutrophils 59.5 % (42.0-75.0); Hematocrit 38.8 % (36.0-47.0); Hemoglobin 13.1 g/dL (12.0-16.0); Mean Corpuscular HGB CONC 33.8 g/dL (32.0-36.0); Mean Corpuscular Hemoglobin 28.5 pg (27.0-31.0); Mean Corpuscular Volume 84.5 fL (78.0-98.0); Mean Platelet Volume 10.6 fL (7.4-10.4); Platelet Count 284 10x3/uL (130-400); RBC Distribution Width 12.5 % (11.5-14.5); Red Blood Cell (RBC) Count 4.59 mill/uL (4.20-5.40)
[2024-04-01 20:28] LABS: BHCG - Serum Negative (NEGATIVE); Pregs Control Background? CLEAR/WHITE (CLR/WHITE); Pregs Control Bar Appear? YES (CONTROL BAR)
[2024-04-01 20:32] LABS: ALT (SGPT) 10 U/L (Less than 34); AST (SGOT) 23 U/L (11-34); Albumin 3.7 g/dL (3.1-4.5); Alkaline Phosphatase 79 U/L (40-110); Anion Gap 10 mmol/L (10-20); BUN (Urea Nitrogen) 9 mg/dL (7.0-18.7); Bilirubin, Total 0.4 mg/dL (0.3-1.2); Calc. Creatinine Clearance 0 mL/min (70-130); Calcium 9.4 mg/dL (7.8-10.44); Carbon Dioxide 23 mmol/L (22-29); Chloride 107 mmol/L (98-107); Estimated GFR 118; Globulin 3.4 g/dL (2.4-3.5); Glucose 100 mg/dL (70-105); Lipase 19 U/L (8-78); Potassium 3.9 mmol/L (3.5-5.1); Protein, Total 7.1 g/dL (6.0-8.3); Sodium 136 mmol/L (136-145)
== END 2024-04-01 23:30 | disposition left against medical advice (07) ==
LOC: ERS 19:15
DX: Z53.21 Procedure and treatment not carried out due to patient leaving prior to being seen by health care provider (principal)
CPT/HCPCS: 36415; 80053; 83690; 84703; 85025